=== PATIENT | male | born 1955 | race Caucasian/White ===

== ENCOUNTER 2017-09-04 05:34 | Day surgery (SDC) | payer OTHER ==
[2017-08-27 14:10] LABS: CLARITY,URINE CLEAR (Clear); COLOR,URINE YELLOW (Yellow); GLUCOSE, URINE NEGATIVE (Neg); KETONES,URINE NEGATIVE (Neg); LEUKOCYTE ESTERASE ,URINE NEGATIVE (Neg); NITRITES, URINE NEGATIVE (Neg); OCCULT BLOOD,URINE NEGATIVE (Neg); PROTEIN,URINE NEGATIVE (Neg)
[2017-08-27 14:14] LABS: BASOPHILS % (AUTO) 0.6 % (0-1); EOSINOPHILS # (AUTO) 0.2 X10'3 (0-0.9); EOSINOPHILS % (AUTO) 2.4 % (0-6); LYMPHOCYTES # (AUTO) 1.6 X10'3 (1.1-4.8); LYMPHOCYTES % (AUTO) 25.6 % (21-51); MEAN CORPUSCULAR HEMOGLOBIN 31.3 PG (27.0-31.0); MEAN CORPUSCULAR HGB CONC 35.4 % (33.0-36.5); MEAN CORPUSCULAR VOLUME 88.2 FL (78-98); MEAN PLATELET VOLUME 7.4 FL (7.4-10.4); MONOCYTES # (AUTO) 0.5 X10'3 (0-0.9); MONOCYTES % (AUTO) 8.1 % (2-12); NEUTROPHILS % (AUTO) 63.3 % (42-75); PRE OP HEMATOCRIT 41.1 % (42.0-52.0); PRE OP HEMOGLOBIN 14.6 g/dL (14.0-17.9); PRE OP PLATELET COUNT 264 X10'3 (140-440); RED BLOOD COUNT 4.67 X10'6 (4.70-6.10)
[2017-08-27 14:17] LABS: UA COLLECTION TYPE VOIDED
[2017-08-27 14:26] LABS: ALBUMIN 3.8 G/DL (3.4-5.0); ALKALINE PHOSPHATASE 43 IU/L (46-116); BLOOD UREA NITROGEN 16 MG/DL (7-18); BUN/CREATININE RATIO 12.3 (5.4-32.0); CALCIUM 8.8 MG/DL (8.5-10.1); CHLORIDE 105 MMOL/L (99-107); PRE OP ALT 66 U/L (30-65); PRE OP ANION GAP 8 (8-16); PRE OP AST 35 U/L (10-37); PRE OP BILIRUB, TOTAL 0.5 MG/DL (0.0-1.0); PRE OP SODIUM 140 MMOL/L (135-145); TOTAL CARBON DIOXIDE 27.5 MMOL/L (24-32); TOTAL PROTEIN 7.7 G/DL (6.4-8.2); eGFR 56 ML/MIN
[2017-08-27 14:29] LABS: PRE OP GLUCOSE 122 MG/DL (70-104); PRE OP POTASSIUM 4.5 MMOL/L (3.4-5.1)
[~2017-09-04] VITALS: Ht 175.3 cm; Wt 142.7 kg
[2017-09-04] VITALS (13 sets, daily range): BP systolic 103–166; BP diastolic 50–99
[~2017-09-04 05:34] MED LIST: ALLO100T PO; ASPI-1265 PO; ESOM40CA PO; FURO-149 PO; HYAL1POW9 PO; LOSA25TA96 PO; MELO-102 PO; METH10005 PO; SYN0.088T PO; famotidine 20mg tablet PO ONE; ringers solution, lacted 1,000 ML IV SCH
[2017-09-04] MEDS ORDERED: LIDOcaine 1% (10mg/ml) 2ml vial ONE (05:53)
[2017-09-04] MEDS ORDERED: VANCOMYCIN INJ 1000 MG in NORMAL SALINE 250ml IV.SOLN IV ONE (06:45)
[2017-09-04] MEDS ORDERED: cefazolin/dext.iso 2gm/50ml 50 ML IV ONE (06:45)
[2017-09-04] MEDS ORDERED: BUPIVAcaine/PF 2.5 mg/ml (0.25%) 30ml vial ONE ×3 (06:52→08:15)
[2017-09-04] MEDS ORDERED: triamcinolone acetonide 40mg/ml inj ONE (06:52)
[2017-09-04] MEDS ORDERED: desflurane 240ml liquid inh. IH ONE (07:15)
[2017-09-04] MEDS ORDERED: dexamethasone sod phosphate 4mg/ml inj. ONE (07:15)
[2017-09-04] MEDS ORDERED: cloNIDine hcl/PF 100mcg/ml inj ONE (07:16)
[2017-09-04] MEDS ORDERED: LIDOcaine 2% 5ml jelly ONE (07:25)
[2017-09-04] MEDS ORDERED: fentaNYL/PF 50MCG/1 ML 2ML syringe ONE ×2 (07:28→09:23)
[2017-09-04] MEDS ORDERED: midazolam 2 mg/2 ml injection ONE (07:28)
[2017-09-04] MEDS ORDERED: rocuronium 10mg/ml inj IV ONE (08:14)
[2017-09-04] MEDS ORDERED: propofol inj 20 ML IV ONE ×2 (08:14)
[2017-09-04] MEDS ORDERED: LIDOcaine 2% (20mg/ml) 5ml vial ONE (08:15)
[2017-09-04] MEDS ORDERED: LIDOcaine 1%/PF (10mg/ml) 5ml vial ONE (08:15)
[2017-09-04] MEDS ORDERED: ePHEDrine 50MG/ML INJ. ONE (08:19)
[2017-09-04] MEDS ORDERED: ringers solution, lacted 1,000 ML IV SCH (09:45)
[2017-09-04] MEDS ORDERED: proCHLORperazine 10 MG/2 ml inj IV PRN (09:45)
[2017-09-04] MEDS ORDERED: fentaNYL/PF 50MCG/1 ML 2ML syringe IV PRN ×2 (09:45)
[2017-09-04] MEDS ORDERED: meperidine/PF 25mg/ml syringe IV PRN (09:45)
[2017-09-04] MEDS ORDERED: ondansetron/PF 4mg/2ml inj IV PRN (09:45)
[2017-09-04] MEDS ORDERED: meperidine/PF 25mg/ml syringe IV ONE (09:45)
[2017-09-04] MEDS: meperidine/PF 25mg/ml syringe IV PRN ×2 (10:04→10:51)
== END 2017-09-04 11:35 | disposition home or self-care (01) ==
LOC: PAS 05:34
PROVIDERS: ATTEND Orthopaedic Surgery
DX: M75.101 Unspecified rotator cuff tear or rupture of right shoulder, not specified as traumatic (principal); M94.211 Chondromalacia, right shoulder; M75.51 Bursitis of right shoulder; M19.011 Primary osteoarthritis, right shoulder; M65.811 Other synovitis and tenosynovitis, right shoulder; G89.18 Other acute postprocedural pain; I10 Essential (primary) hypertension; E78.5 Hyperlipidemia, unspecified; K21.9 Gastro-esophageal reflux disease without esophagitis; E66.01 Morbid (severe) obesity due to excess calories; G47.33 Obstructive sleep apnea (adult) (pediatric); E03.9 Hypothyroidism, unspecified; Z79.82 Long term (current) use of aspirin; Z68.42 Body mass index [BMI] 45.0-49.9, adult; Z88.6 Allergy status to analgesic agent; Z98.890 Other specified postprocedural states; Z72.89 Other problems related to lifestyle; Z79.899 Other long term (current) drug therapy; Z83.3 Family history of diabetes mellitus; Z82.49 Family history of ischemic heart disease and other diseases of the circulatory system; Z87.442 Personal history of urinary calculi
CPT/HCPCS: 23412; 23430; 29820; 29824; 29826; 36415; 64415; 80053; 81003; 85025; 93005; A6449; J0690; J0735; J1100; J2001; J2175; J2250; J2704; J3010; J3370; J3490; J7030; J7120; A6250; J3301

== ENCOUNTER 2020-05-29 05:35 | Day surgery (SDC) | payer OTHER ==
[2020-05-19 15:21] LABS: BASOPHILS # (AUTO) 0.1 X10'3 (0-0.2); BASOPHILS % (AUTO) 1.6 % (0-1); EOSINOPHILS # (AUTO) 0.2 X10'3 (0-0.9); EOSINOPHILS % (AUTO) 3.1 % (0-6); LYMPHOCYTES # (AUTO) 1.9 X10'3 (1.1-4.8); LYMPHOCYTES % (AUTO) 25.2 % (21-51); MEAN CORPUSCULAR HEMOGLOBIN 30.3 PG (27.0-31.0); MEAN CORPUSCULAR HGB CONC 33.5 g/dL (33.0-36.5); MEAN CORPUSCULAR VOLUME 90.5 FL (78-98); MEAN PLATELET VOLUME 7.8 FL (7.4-10.4); MONOCYTES # (AUTO) 0.7 X10'3 (0-0.9); MONOCYTES % (AUTO) 8.9 % (2-12); NEUTROPHILS # (AUTO) 4.6 X10'3 (1.8-7.7); NEUTROPHILS % (AUTO) 61.2 % (42-75); PRE OP HEMOGLOBIN 14.7 g/dL (14.0-17.9); PRE OP PLATELET COUNT 284 X10'3 (140-440); RED BLOOD COUNT 4.86 X10'6 (4.70-6.10); RED CELL DISTRIBUTION WIDTH 15.1 % (11.5-14.5)
[2020-05-19 15:46] LABS: ALBUMIN 4.1 G/DL (3.4-5.0); ALKALINE PHOSPHATASE 46 IU/L (46-116); BLOOD UREA NITROGEN 21 MG/DL (7-18); BUN/CREATININE RATIO 14.7 (5.4-32.0); CALCIUM 9.4 MG/DL (8.5-10.1); CHLORIDE 103 MMOL/L (99-107); CREATININE 1.43 MG/DL (0.60-1.10); PRE OP ALT 37 U/L (30-65); PRE OP ANION GAP 7 (8-16); PRE OP AST 26 U/L (10-37); PRE OP BILIRUB, TOTAL 0.5 MG/DL (0.0-1.0); PRE OP GLUCOSE 108 MG/DL (70-104); PRE OP SODIUM 138 MMOL/L (135-145); TOTAL CARBON DIOXIDE 28.1 MMOL/L (24-32); TOTAL PROTEIN 8.3 G/DL (6.4-8.2); eGFR 50 ML/MIN
[2020-05-29] VITALS (12 sets, daily range): BP systolic 132–190; BP diastolic 64–94
[~2020-05-29] VITALS: Ht 172.7 cm; Wt 140.6 kg
[~2020-05-29 05:35] MED LIST changes: +ATOR40TA72 PO; -FURO-149 PO; +GEMF600T89 PO; +HYAL1CAP PO; -HYAL1POW9 PO; +HYDR12.55 PO; +LEVO100T9 PO; -LOSA25TA96 PO; -MELO-102 PO; +POTA10TA19 PO; -SYN0.088T PO; +UBID50TA3 PO
[2020-05-29] MEDS ORDERED: BUPIVAcaine/PF 2.5 mg/ml (0.25%) 30ml vial ONE (06:39)
[2020-05-29] MEDS ORDERED: ceFAZolin inj. 3,000 MG in normal saline 100ml IV soln 100 ML IV ONE (06:45)
[2020-05-29] MEDS ORDERED: tranexamic acid inj. 1,400 MG in normal saline 100ml IV soln 86 ML IV ONE ×2 (06:46→06:50)
[2020-05-29] MEDS ORDERED: LIDOcaine 1% (10mg/ml) 2ml vial ONE (06:47)
[2020-05-29] MEDS ORDERED: tranexamic acid inj. 1,400 MG in normal saline 100ml IV soln 100 ML IV ONE ×4 (07:01)
[2020-05-29] MEDS ORDERED: sevoflurane 250ml liquid IH ONE (07:12)
[2020-05-29] MEDS ORDERED: rocuronium 10mg/ml inj IV ONE (07:12)
[2020-05-29] MEDS ORDERED: fentaNYL/PF 50MCG/1 ML 2ML syringe ONE (07:16)
[2020-05-29] MEDS ORDERED: MIDAZolam 5mg/5ml vial ONE (07:17)
[2020-05-29] MEDS ORDERED: ROPIVAcaine 0.5% (5mg/ml) 30ml vial ONE (07:18)
[2020-05-29] MEDS ORDERED: LIDOcaine 2% (20mg/ml) 5ml vial ONE (07:19)
[2020-05-29] MEDS ORDERED: propofol inj 20 ML IV ONE (07:19)
[2020-05-29] MEDS ORDERED: dexamethasone sod phosphate 4mg/ml inj. ONE (08:03)
[2020-05-29] MEDS ORDERED: ondansetron/PF 4mg/2ml inj ONE (08:03)
[2020-05-29] MEDS ORDERED: ROPIVAcaine 0.2% (10 MG/5 ML) BOLUS INJECTION INTERSCALE PRN (08:30)
[2020-05-29] MEDS ORDERED: ringers solution, lacted 1,000 ML IV SCH (08:30)
[2020-05-29] MEDS ORDERED: ROPIVAcaine 0.2%/PF PUMP/bolus 550 ML INTERSCALE SCH (08:30)
[2020-05-29] MEDS ORDERED: ondansetron/PF 4mg/2ml inj IV PRN (08:30)
[2020-05-29] MEDS ORDERED: meperidine/PF 25mg/ml syringe IV PRN ×3 (08:30)
[2020-05-29] MEDS ORDERED: proCHLORperazine 10 MG/2 ml inj IV PRN (08:30)
[2020-05-29] MEDS ORDERED: glycopyrrolate 0.2mg/ml inj ONE (09:14)
[2020-05-29] MEDS ORDERED: neostigmine methylsulfate 1 MG/ML 10ml vial ONE (09:14)
--- NOTE | 2020-05-29 09:21 | NUR ---
Received from OR via [facility], accompanied by Anesthesiologist Trip and report given by Anesthesiolgist. VS stable, mask to 10L, sats 96%. Pt not yet responsive to questions, sleeping. 20G right wrist with 100cc/hr. Left shoulder with island dressing, on-Q catheter, and sling in place. Good cap refill to fingers and radial pulse palpable.
[2020-05-29] MEDS ORDERED: HYDROcodone/acetaminophen 10/325mg tab PO PRN (09:35)
--- NOTE | 2020-05-29 11:21 | NUR ---
Pt discharged to vehicle by wheelchair without incident. IV dc'd, pt belongings returend to him, in his own clothing and sling back on. On-Q remains attached at rate of 2ml/hr. After being up and mobilizing, drinking fluids, sitting in wheelchair, O2 consistently 93-94% without dropping. Pt and (on phone and again at vehicle) received extensive education on respiratory care, using CPAP especially in the next 48 hours, using IS once an hour for the next 48 hours at least also, and then all other normal DC instructions including how to appropriately use the ON-Q, mechanism of action and how to DC once completely used. Pt and verbalized understanding of all DC instructions, feel comfortable going home.
== END 2020-05-29 11:21 | disposition home or self-care (01) ==
LOC: PAS 05:35
PROVIDERS: ATTEND Orthopaedic Surgery
DX: M75.22 Bicipital tendinitis, left shoulder (principal); M19.012 Primary osteoarthritis, left shoulder; M75.42 Impingement syndrome of left shoulder; M75.52 Bursitis of left shoulder; G89.18 Other acute postprocedural pain; E78.5 Hyperlipidemia, unspecified; G47.33 Obstructive sleep apnea (adult) (pediatric); I10 Essential (primary) hypertension; K21.9 Gastro-esophageal reflux disease without esophagitis; M10.9 Gout, unspecified; E66.01 Morbid (severe) obesity due to excess calories; Z68.42 Body mass index [BMI] 45.0-49.9, adult; Z87.442 Personal history of urinary calculi; Z88.5 Allergy status to narcotic agent; Z72.89 Other problems related to lifestyle; Z79.899 Other long term (current) drug therapy; Z98.890 Other specified postprocedural states; Z82.49 Family history of ischemic heart disease and other diseases of the circulatory system; Z83.3 Family history of diabetes mellitus
CPT/HCPCS: 29823; 29824; 29826; 64416; 76937; 80053; 82948; 85025; J0690; J1100; J2001; J2250; J2405; J2704; J2710; J2795; J3010; J3490; J7120; A4618; A6449; A7000